=== PATIENT | female | born 1995 | race American Indian/Alaskan Native ===

== ENCOUNTER 2022-04-11 06:10 | Emergency (ER) | payer SELFPAY ==
[2022-04-11 06:55] VITALS: BP 128/80
== END 2022-04-11 15:36 | disposition left against medical advice (07) ==
LOC: ED 06:10
DX: K08.89 Other specified disorders of teeth and supporting structures (principal); Z53.21 Procedure and treatment not carried out due to patient leaving prior to being seen by health care provider